=== PATIENT | male | born 1990 | race Two or more races ===

== ENCOUNTER 2017-07-29 06:12 | Inpatient (IN) | payer MEDICAID ==
[~2017-07-29] VITALS: Ht 182.9 cm; Wt 97.6 kg
[2017-07-29 08:49] LABS: Basophils # (auto) 0.1 uL; Basophils % (auto) 0.6 % (0.0-2.0); CONDITION Y; Eosinophils # (auto) 0.1 uL; Eosinophils % (auto) 1.1 % (0.0-7.0); Lymphocytes # (auto) 1.5 uL; Lymphocytes % (auto) 12.1 % (10.0-50.0); Mean Corpuscular Hemoglobin 30.4 pg (28.0-32.0); Mean Corpuscular Volume 89.2 fL (80.0-100.0); Mean Platelet Volume 8.2 fL (7.4-10.4); Monocytes # (auto) 0.6 uL; Neutrophils # (auto) 10.3 uL; Neutrophils % (auto) 81.2 % (37.0-80.0); Platelet Count (auto) 295 10^3/uL (140-450); Red Cell Distribution Width 12.9 % (11.6-16.0); White Blood Cell 12.7 10^3/uL (4.4-10.8)
[2017-07-29 09:08] LABS: BUN/Creatinine Ratio 13.8; Bilirubin, Total 0.3 mg/dL (0.2-1.0); Calcium 9.1 mg/dL (8.5-10.1); Potassium 4.2 mmol/L (3.5-5.1); Total Protein 7.7 g/dL (6.4-8.2)
[2017-07-29] MEDS ORDERED: ACETAMINOPHEN 500 MG TAB PO PRN (12:15)
[2017-07-29] MEDS ORDERED: TEMAZEPAM 15 MG CAP PO PRN (12:15)
[2017-07-29] MEDS ORDERED: cefTRIAXone 1GM/50ML D5W 50 ML IV ONE (12:15)
[2017-07-29] MEDS ORDERED: MORPHINE SULF INJ 2 MG/ML SYRINGE 1ML IV PRN (12:15)
[2017-07-29] MEDS ORDERED: LORazepam 0.5 MG TAB PO PRN (12:15)
[2017-07-29] MEDS ORDERED: LACTULOSE 20Gm/30ML SOLN PO PRN (12:15)
[2017-07-29] MEDS ORDERED: HYDROcodone-ACET 5/325MG TAB PO PRN (12:15)
[2017-07-29] MEDS ORDERED: metroNIDAZOLE 500MG/100ML 100 ML IV ONE (12:15)
[2017-07-29] MEDS ORDERED: NITROGLYCERIN 0.4 MG SL TAB SL PRN (12:15)
[2017-07-29 12:57] LABS: Urine Bilirubin Negative (Negative); Urine Blood Negative /uL (Negative); Urine Color Yellow (Yellow); Urine Glucose Normal (Normal); Urine Ketone TRACE (Negative); Urine Nitrite Negative (Negative); Urine RBC None Seen /hpf (0 - 3); Urine Urobilinogen Normal (Negative); Urine pH 6.5 (5.0-8.0)
[2017-07-29] MEDS: SODIUM CHLORIDE 0.9% 1,000 ML IV SCH ×2 (13:14→17:30)
[2017-07-29] MEDS: FAMOTIDINE (10MG/ML) 2ML VL IV SCH ×2 (13:16→21:42)
[2017-07-29 13:52] LABS: Temperature: 23.7 C (20.0-25.0)
[2017-07-29 15:43] VITALS: BP 117/71
[2017-07-29] MEDS ORDERED: DOCU100C8 PO (16:44)
[2017-07-29 17:15] VITALS: BP 119/62
[2017-07-29] MEDS: metroNIDAZOLE 500MG/100ML 100 ML IV SCH (17:30)
[2017-07-29 18:31] LABS: Hematocrit 40.1 % (41.0-53.0); Hemoglobin 13.5 g/dL (13.5-17.5)
[2017-07-29 18:42] LABS: INR 1.05 (0.9-1.15); Partial Thromboplastin Time 29.8 sec (22.64-33.71); Prothrombin Time 11.4 sec (9.37-12.3)
[2017-07-29] MEDS: MORPHINE SULF INJ 2 MG/ML SYRINGE 1ML IV PRN (19:35)
[2017-07-29 22:00] VITALS: BP 128/82
[2017-07-30 00:47] LABS: Hematocrit 38.6 % (41.0-53.0); Hemoglobin 12.9 g/dL (13.5-17.5)
[2017-07-30] MEDS: metroNIDAZOLE 500MG/100ML 100 ML IV SCH ×5 (00:58→23:24)
[2017-07-30] MEDS: MORPHINE SULF INJ 2 MG/ML SYRINGE 1ML IV PRN ×5 (01:05→20:10)
[2017-07-30] MEDS: SODIUM CHLORIDE 0.9% 1,000 ML IV SCH ×4 (01:37→21:19)
[2017-07-30 05:00] VITALS: BP 125/75
[2017-07-30 06:28] LABS: Basophils # (auto) 0.1 uL; Basophils % (auto) 0.6 % (0.0-2.0); Eosinophils # (auto) 0.3 uL; Eosinophils % (auto) 3.5 % (0.0-7.0); Hemoglobin 13.7 g/dL (13.5-17.5); Lymphocytes % (auto) 35.9 % (10.0-50.0); Mean Corpuscular Hemoglobin 30.4 pg (28.0-32.0); Mean Corpuscular Hgb Conc. 33.5 g/dL (32.0-36.0); Mean Corpuscular Volume 90.7 fL (80.0-100.0); Monocytes # (auto) 0.6 uL; Monocytes % (auto) 7.7 % (0.0-12.0); Neutrophils # (auto) 4.4 uL; Neutrophils % (auto) 52.3 % (37.0-80.0); Nucleated Red Blood Cells % 0.1 %; Platelet Count (auto) 244 10^3/uL (140-450); Red Cell Distribution Width 13.1 % (11.6-16.0); White Blood Cell 8.4 10^3/uL (4.4-10.8)
[2017-07-30 06:48] LABS: Albumin 3.6 g/dL (3.4-5.0); BUN/Creatinine Ratio 9.3; Bilirubin, Total 0.4 mg/dL (0.2-1.0); Calcium 8.8 mg/dL (8.5-10.1); Potassium 3.4 mmol/L (3.5-5.1)
[2017-07-30 09:00] VITALS: BP_SYST 104; BP_SYST 118; BP_DIAS 54; BP_DIAS 74
[2017-07-30] MEDS: cefTRIAXone 1GM/50ML D5W 50 ML IV SCH (09:00)
[2017-07-30] MEDS: FAMOTIDINE (10MG/ML) 2ML VL IV SCH ×2 (09:32→21:30)
[2017-07-30] MEDS ORDERED: POTASSIUM CHL 20 Meq TABLET PO ONE (12:00)
[2017-07-30 13:00] VITALS: BP 132/75
[2017-07-30] MEDS: PROMETHAZINE HCL 25 MG/ML 1ML IV PRN (16:55)
[2017-07-30 17:13] VITALS: BP 142/64
[2017-07-30 22:00] VITALS: BP 127/82
[2017-07-31] VITALS (7 sets, daily range): BP systolic 119–131; BP diastolic 67–85
[2017-07-31] MEDS: SODIUM CHLORIDE 0.9% 1,000 ML IV SCH ×4 (01:49→23:52)
[2017-07-31] MEDS: PROMETHAZINE HCL 25 MG/ML 1ML IV PRN ×2 (02:57→11:26)
[2017-07-31] MEDS: MORPHINE SULF INJ 2 MG/ML SYRINGE 1ML IV PRN ×4 (02:57→21:31)
[2017-07-31 05:30] LABS: Basophils # (auto) 0 uL; Basophils % (auto) 0.5 % (0.0-2.0); Eosinophils # (auto) 0.2 uL; Eosinophils % (auto) 2.3 % (0.0-7.0); Hematocrit 38.5 % (41.0-53.0); Hemoglobin 12.9 g/dL (13.5-17.5); Lymphocytes # (auto) 2.3 uL; Lymphocytes % (auto) 25.5 % (10.0-50.0); Mean Corpuscular Hemoglobin 30.1 pg (28.0-32.0); Mean Corpuscular Hgb Conc. 33.6 g/dL (32.0-36.0); Mean Corpuscular Volume 89.5 fL (80.0-100.0); Monocytes # (auto) 0.7 uL; Monocytes % (auto) 7.4 % (0.0-12.0); Neutrophils # (auto) 5.8 uL; Neutrophils % (auto) 64.3 % (37.0-80.0); Platelet Count (auto) 228 10^3/uL (140-450)
[2017-07-31] MEDS: metroNIDAZOLE 500MG/100ML 100 ML IV SCH ×2 (05:51→11:46)
[2017-07-31 05:53] LABS: BUN/Creatinine Ratio 7.6; Calcium 8.3 mg/dL (8.5-10.1); Potassium 3.9 mmol/L (3.5-5.1)
[2017-07-31] MEDS: cefTRIAXone 1GM/50ML D5W 50 ML IV SCH (09:04)
[2017-07-31] MEDS: FAMOTIDINE (10MG/ML) 2ML VL IV SCH ×2 (10:14→21:30)
[2017-07-31] MEDS: metroNIDAZOLE 500 MG TAB PO SCH (21:30)
[2017-08-01 05:00] VITALS: BP 126/74
[2017-08-01] MEDS: metroNIDAZOLE 500 MG TAB PO SCH ×2 (05:52→14:26)
[2017-08-01] MEDS: SODIUM CHLORIDE 0.9% 1,000 ML IV SCH (06:51)
[2017-08-01 08:00] VITALS: BP 129/75
[2017-08-01] MEDS: FAMOTIDINE (10MG/ML) 2ML VL IV SCH (10:51)
[2017-08-01 13:00] VITALS: BP 143/86
[2017-08-01 15:48] VITALS: BP 143/81
[2017-08-01 17:00] VITALS: BP 131/92
== END 2017-08-01 16:45 | disposition home or self-care (01) | DRG 248 ==
LOC: ER 06:12 → EDBD 06:12 → TELE 06:13 → TELE-E-ADS 15:27 → TELE-WESTW 17:02
PROVIDERS: ADMIT Internal Medicine; ATTEND Family Medicine
DX: A04.7 Enterocolitis due to Clostridium difficile (principal); F32.9 Major depressive disorder, single episode, unspecified; F12.90 Cannabis use, unspecified, uncomplicated; F41.9 Anxiety disorder, unspecified; R55 Syncope and collapse; K57.90 Diverticulosis of intestine, part unspecified, without perforation or abscess without bleeding; R10.9 Unspecified abdominal pain; D72.829 Elevated white blood cell count, unspecified; Z87.891 Personal history of nicotine dependence
CPT/HCPCS: 36415; 70450; 74176; 80048; 80053; 80061; 80307; 81001; 82150; 82550; 82746; 83690; 84443; 85014; 85018; 85025; 85045; 85610; 85652; 85730; 86141; 86850; 86900; 86901; 87493; 93005; 93306; 93886; 96365; 96367; J0696; J3490

== ENCOUNTER 2018-02-10 12:45 | Emergency (ER) | payer MEDICAID ==
[~2018-02-10] VITALS: Ht 185.4 cm; Wt 95.3 kg
[~2018-02-10 12:45] MED LIST: DOCU100C8 PO
[2018-02-10 13:04] VITALS: BP 123/90
[2018-02-10 13:31] LABS: Basophils # (auto) 0.1 uL; Eosinophils # (auto) 0.2 uL; Eosinophils % (auto) 1.8 % (0.0-7.0); Hematocrit 45.7 % (41.0-53.0); Hemoglobin 15.6 g/dL (13.5-17.5); Lymphocytes # (auto) 2.3 uL; Lymphocytes % (auto) 26.7 % (10.0-50.0); Mean Corpuscular Hemoglobin 31.2 pg (28.0-32.0); Mean Corpuscular Hgb Conc. 34.1 g/dL (32.0-36.0); Mean Corpuscular Volume 91.6 fL (80.0-100.0); Monocytes # (auto) 0.7 uL; Monocytes % (auto) 7.9 % (0.0-12.0); Neutrophils # (auto) 5.5 uL; Neutrophils % (auto) 62.6 % (37.0-80.0); Nucleated Red Blood Cells % 0.1 %; Platelet Count (auto) 271 10^3/uL (140-450); Red Blood Cells 4.99 10^6/uL (4.5-5.90); Red Cell Distribution Width 12.8 % (11.8-14.3); White Blood Cell 8.7 10^3/uL (4.4-10.8)
[2018-02-10 13:47] LABS: BUN/Creatinine Ratio 13.3; Calcium 9.2 mg/dL (8.5-10.1); Potassium 4.6 mmol/L (3.5-5.1)
[2018-02-10 13:50] LABS: Bilirubin, Total 0.2 mg/dL (0.2-1.0); Total Protein 7.6 g/dL (6.4-8.2)
== END 2018-02-10 16:38 | disposition home or self-care (01) ==
LOC: ER 12:45
DX: R10.31 Right lower quadrant pain (principal); R11.2 Nausea with vomiting, unspecified
CPT/HCPCS: 36415; 74176; 80053; 82150; 83690; 85025

== ENCOUNTER 2018-05-02 22:39 | Emergency (ER) | payer MEDICAID, OTHER ==
[~2018-05-02] VITALS: Ht 182.9 cm; Wt 95.3 kg
[2018-05-02 22:43] VITALS: BP 115/71
[2018-05-02 23:11] LABS: Basophils # (auto) 0.1 uL; Basophils % (auto) 0.4 % (0.0-2.0); Eosinophils # (auto) 0 uL; Hematocrit 48.9 % (41.0-53.0); Hemoglobin 16.4 g/dL (13.5-17.5); Lymphocytes # (auto) 1.4 uL; Lymphocytes % (auto) 7.3 % (10.0-50.0); Mean Corpuscular Hemoglobin 29.9 pg (28.0-32.0); Mean Corpuscular Hgb Conc. 33.6 g/dL (32.0-36.0); Mean Corpuscular Volume 88.9 fL (80.0-100.0); Monocytes # (auto) 0.5 uL; Monocytes % (auto) 2.6 % (0.0-12.0); Neutrophils # (auto) 17.6 uL; Neutrophils % (auto) 89.7 % (37.0-80.0); Platelet Count (auto) 281 10^3/uL (140-450); Red Cell Distribution Width 12.9 % (11.8-14.3); White Blood Cell 19.6 10^3/uL (4.4-10.8)
[2018-05-02 23:26] LABS: Albumin 4.8 g/dL (3.4-5.0); Calcium 9.6 mg/dL (8.5-10.1); Potassium 3.8 mmol/L (3.5-5.1)
[2018-05-02 23:29] LABS: BUN/Creatinine Ratio 12.9
[2018-05-02 23:31] LABS: Bilirubin, Total 0.4 mg/dL (0.2-1.0); Total Protein 8.5 g/dL (6.4-8.2)
== END 2018-05-03 02:54 | disposition left against medical advice (07) ==
LOC: ER 22:40
DX: R11.2 Nausea with vomiting, unspecified (principal); Z53.21 Procedure and treatment not carried out due to patient leaving prior to being seen by health care provider
CPT/HCPCS: 36415; 74176; 80053; 85025